=== PATIENT | female | born 1940 | race Hispanic/Latino ===

== ENCOUNTER 2022-04-14 17:34 | Inpatient (IN) | payer MEDICARE ==
[2022-04-14 21:05] VITALS: BMI 23.8
[2022-04-15] MEDS ORDERED: Ondansetron PF 4 MG/2 ML Vial IVP PRN (00:50)
[2022-04-15] MEDS ORDERED: Guaifenesin DM 100-10/5 ML UDCUP PO PRN (00:50)
[2022-04-15] MEDS ORDERED: Dextrose 5% in Water 1,000 ML IV PRN (00:50)
[2022-04-15] MEDS ORDERED: Acetaminophen 325 MG TAB PO PRN (00:50)
[2022-04-15] MEDS ORDERED: Dextrose 50% Abboject 50 ML SYRINGE SLOW IVP PRN (00:50)
[2022-04-15] MEDS ORDERED: Ondansetron ODT 4 MG TAB PO PRN (00:50)
[2022-04-15] MEDS ORDERED: Acetaminophen 650 MG Suppository PR PRN (00:50)
[2022-04-15] MEDS ORDERED: HumaLOG 300 UNITS/3 ML VIAL SC PRN ×2 (00:50)
[2022-04-15] MEDS ORDERED: Sodium Chloride 0.9% 500 ML IV SCH (01:00)
[2022-04-15] MEDS: cefTRIAXone\\ROCEPHIN 1 GM in Sodium Chloride 0.9% 100 ML IVPB SCH (04:13)
[2022-04-15] MEDS: Azithromycin 500 MG in Sodium Chloride 0.9% 250 ML 250 ML IVPB SCH (05:15)
[2022-04-15 05:54] LABS: #Eosinphils 0.1 thou/uL (0.0-0.7); #Lymphocytes 1.2 thou/uL (1.20-3.40); #Monocytes 0.9 thou/uL (0.11-0.59); #Neutrophils 10.8 thou/uL (1.40-6.50); %Basophils 0.1 % (0.0-1.0); %Eosinophils 0.5 % (0.0-10.0); %Lymphocytes 9.3 % (21.0-51.0); %Monocytes 6.9 % (0.0-10.0); %Neutrophils 83.2 % (42.0-75.0); Hemoglobin 12.4 g/dL (12.0-16.0); Mean Corpuscular Hemoglobin 31.9 pg (27.0-31.0); Mean Corpuscular Volume 96.7 fL (78.0-98.0); Mean Platelet Volume 6.5 fL (7.4-10.4); Platelet Count 461 thou/uL (130-400); RBC Distribution Width 12.3 % (11.5-14.5); Red Blood Cell (RBC) Count 3.88 mill/uL (4.20-5.40)
[2022-04-15 06:07] LABS: Lactic Acid 1.2 mmol/L (0.5-2.2)
[2022-04-15 06:16] LABS: Anion Gap 17 mmol/L (10-20); BUN (Urea Nitrogen) 4 mg/dL (9.8-20.1); Calc. Creatinine Clearance 69 mL/min (70-130); Calcium 9.5 mg/dL (7.8-10.44); Carbon Dioxide 24 mmol/L (23-31); Chloride 102 mmol/L (98-107); Estimated GFR 94; Glucose 115 mg/dL (83-110); Magnesium 1.6 mg/dL (1.6-2.6); Sodium 140 mmol/L (136-145)
[2022-04-15 06:31] LABS: Potassium 2.9 mmol/L (3.5-5.1)
[2022-04-15] MEDS ORDERED: ISOVUE-370 76%-LOCM 1 ML ONE (08:00)
[2022-04-15] MEDS: Amlodipine 10 MG TAB PO SCH (08:08)
[2022-04-15] MEDS: metFORMIN 500 MG TAB PO SCH (08:08)
[2022-04-15] MEDS: Glimepiride 2 MG TAB PO SCH (08:08)
[2022-04-15] MEDS: Famotidine 20 MG TAB PO SCH ×2 (08:08→21:36)
[2022-04-15] MEDS: Aspirin 81 mg Enteric Coated Tablet PO SCH (08:08)
[2022-04-15] MEDS: Megestrol Acetate 40 MG TAB PO SCH ×2 (08:08→21:36)
[2022-04-15] MEDS: Heparin 5,000 UNITS/ML VIAL SC SCH (08:08)
[2022-04-15 11:17] LABS: INR-International Normal Ratio 1.1; PTT 29.5 sec (22.9-36.1); Prothrombin Time 14.4 sec (12.0-14.7)
[2022-04-15] MEDS ORDERED: Potassium Chloride 20 MEQ TAB PO SCH (15:00)
[2022-04-15] MEDS ORDERED: Simvastatin 10 MG TAB PO SCH (21:00)
[2022-04-16] MEDS: cefTRIAXone\\ROCEPHIN 1 GM in Sodium Chloride 0.9% 100 ML IVPB SCH (04:18)
[2022-04-16] MEDS: Azithromycin 500 MG in Sodium Chloride 0.9% 250 ML 250 ML IVPB SCH (05:36)
[2022-04-16 07:08] LABS: #Eosinphils 0.1 thou/uL (0.0-0.7); #Lymphocytes 1.4 thou/uL (1.20-3.40); #Monocytes 0.9 thou/uL (0.11-0.59); #Neutrophils 12.1 thou/uL (1.40-6.50); %Basophils 0.2 % (0.0-1.0); %Eosinophils 0.7 % (0.0-10.0); %Lymphocytes 9.4 % (21.0-51.0); %Monocytes 5.9 % (0.0-10.0); %Neutrophils 83.8 % (42.0-75.0); Hemoglobin 12.7 g/dL (12.0-16.0); Mean Corpuscular HGB CONC 32.9 g/dL (32.0-36.0); Mean Corpuscular Hemoglobin 31.7 pg (27.0-31.0); Mean Corpuscular Volume 96.4 fL (78.0-98.0); Mean Platelet Volume 6.6 fL (7.4-10.4); Platelet Count 497 thou/uL (130-400); RBC Distribution Width 12.2 % (11.5-14.5); Red Blood Cell (RBC) Count 4.01 mill/uL (4.20-5.40); White Blood Cell (WBC) Count 14.4 thou/uL (4.8-10.8)
[2022-04-16 07:31] LABS: Anion Gap 14 mmol/L (10-20); BUN (Urea Nitrogen) 5 mg/dL (9.8-20.1); Calc. Creatinine Clearance 74 mL/min (70-130); Calcium 9.7 mg/dL (7.8-10.44); Carbon Dioxide 25 mmol/L (23-31); Chloride 102 mmol/L (98-107); Estimated GFR 96; Glucose 118 mg/dL (83-110); Potassium 3.4 mmol/L (3.5-5.1); Sodium 138 mmol/L (136-145)
[2022-04-16] MEDS: Glimepiride 2 MG TAB PO SCH (08:17)
[2022-04-16] MEDS: Aspirin 81 mg Enteric Coated Tablet PO SCH (08:17)
[2022-04-16] MEDS: Amlodipine 10 MG TAB PO SCH (08:17)
[2022-04-16] MEDS: Famotidine 20 MG TAB PO SCH (08:17)
[2022-04-16] MEDS: Megestrol Acetate 40 MG TAB PO SCH (08:18)
[2022-04-16] MEDS: metFORMIN 500 MG TAB PO SCH (08:19)
[2022-04-16] MEDS: Heparin 5,000 UNITS/ML VIAL SC SCH ×2 (08:27→15:59)
[2022-04-16 13:43] LABS: Fluid, pH - Pleural Fld Greater than 7.50 (7.60 - 7.66)
[2022-04-16 13:52] LABS: RBC Count-Automated (BF) 90989 /cu.mm; WBC/Nucleated-Auto (BF) 1053 /cu.mm
[2022-04-16 13:56] LABS: Fluid, Triglycerides 32 mg/dL (Not Available); Pleural Fluid, Amylase Less than 30 U/L (Not Available); Pleural Fluid, Glucose 108 mg/dL; Pleural Fluid, LDH 470 U/L (Not Available); Pleural Fluid, Protein 4.3 g/dL
[2022-04-16 14:08] LABS: BF Color Red; Body Fluid Source Pleural Fluid; Clarity Cloudy/Turbid (Clear); Tube # EDTA
[2022-04-16 14:23] LABS: BF Segmented Neutrophils 10 %; Cell Count Non Hematic 77 %; Eosinophils 2 %; Lymphocytes 11 %
[2022-04-16 16:13] VITALS: BP 133/72; TEMP 98.5
== END 2022-04-16 18:02 | disposition home or self-care (01) | DRG 181 ==
LOC: T4-B 19:29
PROVIDERS: ADMIT Student in an Organized Health Care Education/Training Program; ATTEND Student in an Organized Health Care Education/Training Program
PROC: 0W993ZZ Drainage of Right Pleural Cavity, Percutaneous Approach (ICD-10-PCS; principal; 2022-04-16)
DX: C78.00 Secondary malignant neoplasm of unspecified lung (principal); E87.2 Acidosis; N13.30 Unspecified hydronephrosis; J91.0 Malignant pleural effusion; E87.1 Hypo-osmolality and hyponatremia; Z20.822 Contact with and (suspected) exposure to COVID-19; I10 Essential (primary) hypertension; E11.9 Type 2 diabetes mellitus without complications; E78.5 Hyperlipidemia, unspecified; E87.6 Hypokalemia; C52 Malignant neoplasm of vagina; Z88.6 Allergy status to analgesic agent; Z88.8 Allergy status to other drugs, medicaments and biological substances; Z79.82 Long term (current) use of aspirin; Z79.84 Long term (current) use of oral hypoglycemic drugs; Z79.899 Other long term (current) drug therapy; Z90.49 Acquired absence of other specified parts of digestive tract; Z83.3 Family history of diabetes mellitus; Z80.0 Family history of malignant neoplasm of digestive organs; Z80.8 Family history of malignant neoplasm of other organs or systems
CPT/HCPCS: 36415; 36416; 71260; 74177; 80048; 82150; 82945; 83036; 83605; 83615; 83735; 83986; 84157; 84478; 85025; 85060; 85610; 85730; 87070; 87116; 87205; 87206; 88112; 88305; 88341; 88342; 89051; J0456; J0696; J1644; J3490; J7050; Q9966; S0179